=== PATIENT | male | born 1940 | race Caucasian/White ===

== ENCOUNTER 2018-01-03 09:47 | Day surgery (SDC) | payer OTHER ==
[2018-01-03] MEDS ORDERED: Ringers Lactate 1,000 ML IV ONE (10:26)
[2018-01-03] MEDS ORDERED: LIDOCAINE 1% W/EPI 1:100,000 MDV 50 ML VIAL ONE (11:20)
[2018-01-03] MEDS ORDERED: NA CHLORIDE 0.9% 500 ML ONE (11:21)
[2018-01-03] MEDS ORDERED: PROPOFOL 200 MG/20 ML VIAL IV ONE (11:42)
[2018-01-03] MEDS ORDERED: MIDAZOLAM HCL 2 MG/2 ML INJ ONE (11:42)
[2018-01-03] MEDS ORDERED: LIDOCAINE 1% MPF 5 ML VIAL ONE (11:43)
[2018-01-03] MEDS ORDERED: FENTANYL CITR 100 MCG/2 ML ONE (11:55)
[2018-01-03] MEDS ORDERED: ROCURONIUM 50 MG/5 ML VIAL IV ONE (11:56)
[2018-01-03] MEDS ORDERED: ONDANSETRON 4 MG/2 ML VIAL ONE ×2 (12:02→12:21)
--- NOTE | 2018-01-03 12:14 | P.BOP ---
Preoperative diagnosis: laryngeal papilloma Postoperative diagnosis: same Primary procedure: DL with telescope with removal fo vocal tumor Screw Machine Setter: NONE,NONE Estimated blood loss: <5ml Specimen: left true vocal fold tumor Anesthesia: General Complications: None Implants: none Fluids & blood products: crystalloid 500ml Transferred to: Recovery Room Condition: Good
[2018-01-03] MEDS ORDERED: KETOROLAC 30 MG/ML INJ ONE (12:20)
[2018-01-03] MEDS ORDERED: GLYCOPYRROLATE 0.2 MG/ML SYR ONE (12:20)
[2018-01-03] MEDS ORDERED: NEOSTIGMINE 1 MG/ML -5 ML SYRINGE ONE (12:26)
[2018-01-03] MEDS ORDERED: OXYMETAZOLINE HCL 0.05% 30ML NAS ONE (12:34)
[2018-01-03 12:55] VITALS: TEMP 97.2
[2018-01-03 13:32] VITALS: BP 137/70; O2SAT 92
--- NOTE | 2018-01-03 22:55 | OP ---
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 Procedure: Direct laryngoscopy with telescope and removal of vocal cord tumor. Indication For Procedure: Mr. 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 The risks, benefits, and alternatives to the proce dure were discussed with the patient, who agreed to proceed. Description Of Procedure In Detail: The patient was brought to the operating room. He was placed un alek general anesthesia via oral endotracheal tube. A shoulder roll was placed and the neck was exten ded and supported. A gauze was applied to the upper gingiva to protect the oral lining. A Rosamaria-Be rci laryngoscope was fitted with a 15-degree telescope was used to perform a direct laryngoscopy. Th e patient's vocal cords were well visualized, and the scope was placed in suspension from the [facility]. A suction was used to suction a small amount of blood and a right angle dissector was used to g ently push and evaluate the tumor. The bulk of the tumor was located on the left anterior vocal fold , but in evaluation, there was a small amount of tumor on the adjacent surface of the right vocal fol d. A large cup forceps was used to collect a 2 biopsies from the left vocal cord mass for pathologic evaluation. The laryngeal greenhouse specialist blade on the microdebrider was then used to debulk the tumor to t he degree feasible. 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 Epinephrine soaked pledget was applied to the left vocal cord and left for several minutes to aid in hemostasis. The laryngoscope was then relaxed and the 0-degree endoscope was passed throu gh the glottis. The cuff on the endotracheal tube was deflated and the mucosal surface of the anteri or and lateral tracheal wall was examined. There was no evidence of tracheal papilloma. Due to mini mal disease and lack of tracheal papilloma noted, decision was made not to perform a formal bronchosc opy. 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 The assessment of his vocal function will be made and if he has persistent dysphonia, removal will b e performed in 30-60 days once the left side is well healed. Complications: None. Specimen: Left vocal fold mass. Disposition: The patient was returned to care of anesthesia for awakening extubation in the operatin g room and will be discharged home later today in the care of his family on strict voice rest for 3 d ays. ANDRE/TAURUS Voice ID: [id number] Report ID: [id number]
== END 2018-01-03 14:00 | disposition home or self-care (01) ==
LOC: OR 09:47
PROVIDERS: ATTEND Otolaryngology
PROC: 0CBV8ZZ Excision of Left Vocal Cord, Via Natural or Artificial Opening Endoscopic (ICD-10-PCS; principal; 2018-01-03 11:15)
DX: D14.1 Benign neoplasm of larynx (principal); F17.220 Nicotine dependence, chewing tobacco, uncomplicated; Z82.3 Family history of stroke
CPT/HCPCS: 31541; 88305; J2250; J2405 ×2; J2710; J3010

== ENCOUNTER 2018-01-23 07:14 | Day surgery (SDC) | payer OTHER ==
[2018-01-21 15:08] LABS: Absolute Lymphocytes (CBC) 2.8 K/uL (0.7-4.9); Absolute Monocytes 0.8 K/uL (0.1-1.3); Absolute Neutrophil 4.8 K/uL (1.8-8.0); Eosinophils % 4.3 % (0-4.4); Hematocrit 48.9 % (39.6-49.0); Lymphocytes % 31.5 % (15.3-44.8); MCH 29.8 pg (27.0-35.0); MCV 86.4 fL (80-100); MPV 9.4 fL (7.6-11.3); RBC Red Blood Cell Count 5.65 M/uL (4.33-5.43)
[2018-01-21 15:12] LABS: Protime INR 1.03
--- NOTE | 2018-01-21 15:15 | RAD REPORT ---
EXAM DESCRIPTION: RAD - Chest Pa And Lat (2 Views) - 01/21/2018 3:08 pm CLINICAL HISTORY: Coronary artery disease. COMPARISON: 04/06/2016, 11/06/2015 FINDINGS: The lungs are emphysematous but clear. The heart is normal in size. No displaced fractures . IMPRESSION: Mild COPD.
[2018-01-21 17:07] LABS: Potassium 4.2 mEq/L (3.6-5.0)
--- NOTE | 2018-01-22 06:58 | EKG ---
Test Date: 2018-01-21 Test Time: 14:54:34 Commissary Helper: JITENDRA MEASUREMENT RESULTS: Intervals: Rate: 57 MA: 194 QRSD: 100 QT: 404 QTc: 393 [place]: P: -20 MA: 194 QRS: -19 T: -3 INTERPRETIVE STATEMENTS: Sinus bradycardia Inferior infarct, age undetermined Abnormal ECG Compared to ECG 04/27/2016 11:45:02 No significant changes Electronically Signed On 01-22-18 06:57:30 CDT by Wisam Sequeira
[2018-01-23] MEDS ORDERED: NA CHLORIDE 0.9% 500 ML ONE (07:58)
[2018-01-23] MEDS ORDERED: HEPA 1000U/500MLS 2,000 UNIT/1,000 ML BAG IV ONE (08:25)
[2018-01-23] MEDS ORDERED: LIDOCAINE 1% 20 ML MDV ONE (08:25)
[2018-01-23] MEDS ORDERED: FENTANYL CITR 100 MCG/2 ML ONE (08:46)
[2018-01-23] MEDS ORDERED: MIDAZOLAM HCL 2 MG/2 ML INJ ONE ×2 (08:46→09:07)
[2018-01-23 11:07] VITALS: BP 139/66; O2SAT 96
[2018-01-23 11:08] VITALS: TEMP 97.2
--- NOTE | 2018-01-23 20:57 | OP ---
Surgeon: Giovanni Kohli MD Data Entry Manager: Alesha Parekh. Procedure: Abdominal angiogram with runoff. Indication: Peripheral arterial disease, claudication and positive arterial Doppler. Procedure In Detail: Abdominal angiogram was done using a pigtail catheter via left groin approach 6 -Sing[place]an. Abdominal angiogram with runoff showed 100% mid to distal right SFA occlusion, normal aorta , and iliac, very sharp iliac bifurcation. No complications. Estimated Blood Loss: 5 cc. Final Diagnosis: Peripheral arterial disease. 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 Capacitor Pack Press Operator: Giovanni Kohli M.D. Total Conscious Sedation: 30 minutes. Disposition: The patient will be discharged home and set up for an outpatient procedure over the nex t few days. ALEXANDRA/TAURUS Voice ID: [id number] Report ID: [id number]
== END 2018-01-23 11:34 | disposition home or self-care (01) ==
LOC: CCL 07:14
DX: I70.211 Atherosclerosis of native arteries of extremities with intermittent claudication, right leg (principal); I70.92 Chronic total occlusion of artery of the extremities; R07.89 Other chest pain; R06.02 Shortness of breath; Z82.49 Family history of ischemic heart disease and other diseases of the circulatory system
CPT/HCPCS: 36200; 36415; 71046; 75630; 80048; 85025; 85610; 85730; 93005; C1760; C1893; J2250 ×2; J3010

== ENCOUNTER 2018-01-28 07:22 | Day surgery (SDC) | payer OTHER ==
[2018-01-28] MEDS ORDERED: NA CHLORIDE 0.9% 500 ML ONE (07:36)
[2018-01-28] MEDS ORDERED: LIDOCAINE 1% 20 ML MDV ONE ×2 (08:34→09:12)
[2018-01-28] MEDS ORDERED: HEPA 1000U/500MLS 1,000 UNIT/500 ML BAG IV ONE ×2 (08:34→09:19)
[2018-01-28] MEDS ORDERED: FENTANYL CITR 100 MCG/2 ML ONE (08:35)
[2018-01-28] MEDS ORDERED: HEPARIN 5000 UNIT/ML 1 ML VIAL ONE (08:35)
[2018-01-28] MEDS ORDERED: MIDAZOLAM HCL 2 MG/2 ML INJ ONE ×3 (08:35→09:38)
[2018-01-28] MEDS ORDERED: ATROPINE SULF 1 MG/10 ML SYR IV ONE (08:57)
[2018-01-28 16:49] VITALS: BP 138/76; TEMP 98.2; O2SAT 98
--- NOTE | 2018-01-28 22:37 | OP ---
Surgeon: Giovanni Kohli MD Wooden Tank Erector: Candida Parekh. Procedure: The patient was brought in to the catheterization lab today as an outpatient for an attem pt of an angioplasty of his right superficial femoral artery. Indication For The Procedure: Peripheral vascular disease, claudication, and abnormal arteriogram of the right SFA. Description Of Procedure: The patient was brought in. He was prepped and draped in the routine ster ile fashion. He was given approximately 6 mg of Versed and 50 mg of fentanyl throughout the procedur e. Attempt at an antegrade stick failed as the profunda had a very high takeoff from the SFA. I was uncomfortable sticking higher than I did, which will be way above the inguinal ligament. Does not m atter what we did, the SFA was not cannulated or wired. So, we aborted the attempt from the antegrad e. We tried the left femoral artery approach. We went up and over with the ARAMBULA catheter and a wire . It was done approximately 20 to 30 minutes right across the lesion with a Glidewire without any felipe ccess. The patient tolerated the procedure well. He had no hematomas in either the left or right gr oin. There were no complications. The procedure was considered a failed angioplasty of the right SF A secondary to inability to cross with a wire. The lesion was very hard and calcified and completely occluded and very long stenosis. The case was discussed with the patient and the family, and it was decided to send for a femoral-popliteal bypass in the future as an outpatient. The patient will be going back to the recovery room for 6-hour bedrest as we held pressure on both of the groins. An up-and-over sheath was used to try to cross the iliac bifurcation that was unsuccessful secondary to the sharp takeoff of the iliacs. Conscious Sedation Time: Total conscious sedation for approximately an hour and 15 minutes. Estimated Blood Loss: The blood loss was about 15 cc. ALEXANDRA/TAURUS Voice ID: [id number] Report ID: [id number]
== END 2018-01-28 16:45 | disposition home health service (06) ==
LOC: CCL 07:22
DX: I70.201 Unspecified atherosclerosis of native arteries of extremities, right leg (principal); R07.9 Chest pain, unspecified; R06.02 Shortness of breath; Z82.49 Family history of ischemic heart disease and other diseases of the circulatory system
CPT/HCPCS: 37226; C1725; C1887; C1893; J1644; J2250 ×3; J3010